=== PATIENT | male | born 1980 | race Two or more races ===

== ENCOUNTER 2017-09-12 21:26 | Emergency (ER) | payer MEDICAID ==
[~2017-09-12] VITALS: Ht 172.7 cm; Wt 65.8 kg
[2017-09-12 21:43] VITALS: BP 127/76
== END 2017-09-13 02:35 | disposition left against medical advice (07) ==
LOC: ER 21:26
DX: R55 Syncope and collapse (principal); R51 Headache; Z53.21 Procedure and treatment not carried out due to patient leaving prior to being seen by health care provider
CPT/HCPCS: 70450; 82962; 93005

== ENCOUNTER 2017-09-13 12:19 | Emergency (ER) | payer MEDICAID ==
[~2017-09-13] VITALS: Ht 167.6 cm; Wt 64.0 kg
[2017-09-13 12:58] LABS: Basophils # (auto) 0 uL; Basophils % (auto) 0.7 % (0.0-2.0); Eosinophils # (auto) 0.1 uL; Eosinophils % (auto) 1.2 % (0.0-7.0); Hematocrit 44.1 % (41.0-53.0); Hemoglobin 14.9 g/dL (13.5-17.5); Lymphocytes # (auto) 1.7 uL; Mean Corpuscular Hemoglobin 30.2 pg (28.0-32.0); Mean Corpuscular Hgb Conc. 33.8 g/dL (32.0-36.0); Mean Corpuscular Volume 89.4 fL (80.0-100.0); Monocytes # (auto) 0.3 uL; Monocytes % (auto) 5.1 % (0.0-12.0); Neutrophils # (auto) 4.6 uL; Nucleated Red Blood Cells % 0.1 %; Platelet Count (auto) 227 10^3/uL (140-450); Red Blood Cells 4.93 10^6/uL (4.5-5.90); Red Cell Distribution Width 13.2 % (11.8-14.3); White Blood Cell 6.7 10^3/uL (4.4-10.8)
[2017-09-13 13:22] LABS: Alanine Aminotransferase 16 U/L (16-61); Albumin 4.1 g/dL (3.4-5.0); Alkaline Phosphatase 68 U/L (45-117); Anion Gap 11 (5-15); Aspartate Aminotransferase 16 U/L (15-37); BUN/Creatinine Ratio 13.4; Bilirubin, Total 0.5 mg/dL (0.2-1.0); Blood Alcohol < 3.0 mg/dL (0-5); Blood Urea Nitrogen 9 mg/dL (7-18); Calcium 8.7 mg/dL (8.5-10.1); Carbon Dioxide 24 mmol/L (21-32); Chloride 107 mmol/L (98-107); GFR African American 171 mL/min; GFR Non-African American 141 mL/min; Glucose 88 mg/dL (74-106); Magnesium 2.3 mg/dL (1.6-2.6); Potassium 3.7 mmol/L (3.5-5.1); Sodium 142 mmol/L (136-145); Total Protein 7.5 g/dL (6.4-8.2)
[2017-09-13 14:36] VITALS: BP 123/72
[2017-09-13 16:28] LABS: Alcohol, Urine < 3.0 mg/dL (0-5); Amphetamine Screen, Urine NEGATIVE (NEGATIVE); Barbiturate Scree,Urine NEGATIVE (NEGATIVE); Benzodiazephine Screen, Urine NEGATIVE (NEGATIVE); Cannabinoid Screen, Urine POSITIVE (NEGATIVE); Cocaine Screen, Urine NEGATIVE (NEGATIVE); Opiate Scree,Urine NEGATIVE (NEGATIVE); Phencyclidine Screen, Urine NEGATIVE (NEGATIVE)
== END 2017-09-13 14:39 | disposition home or self-care (01) ==
LOC: ER 12:19
DX: R55 Syncope and collapse (principal); H93.19 Tinnitus, unspecified ear
CPT/HCPCS: 36415; 71046; 80053; 80307; 80320; 82962; 83735; 85025; 93005

== ENCOUNTER 2018-06-05 20:44 | Emergency (ER) | payer SELFPAY ==
[~2018-06-05] VITALS: Ht 167.6 cm; Wt 68.0 kg
[2018-06-05 23:01] VITALS: BP 122/82
[2018-06-05] MEDS ORDERED: PENICILLIN G PROC & BENZAT 1200000 UNITS/2 ML SYRG IM ONE (23:45)
== END 2018-06-06 00:31 | disposition home or self-care (01) ==
LOC: ER 20:53
DX: H66.91 Otitis media, unspecified, right ear (principal); J02.9 Acute pharyngitis, unspecified
CPT/HCPCS: 96372; 99283; J0558